=== PATIENT | male | born 1990 | race Caucasian/White ===

== ENCOUNTER 2017-02-03 19:26 | Emergency (ER) | payer OTHER ==
[2017-02-03 20:25] LABS: BASOPHIL 0.4 % (0-2); EOSINOPHIL 4.4 % (0-5); HCT 40.8 % (42.0-52.0); HGB 14.4 g/dl (13.2-18.0); LYMPHOCYTE 36.1 % (15-48); MCH 31.9 pg (25.0-31.0); MCHC 35.3 g/dL (32.0-36.0); MCV 90.5 fL (78.0-100.0); MONOCYTE 9.9 % (0-12); MPV 9.2 fL (6.0-9.5); NEUTROPHIL 49.2 % (41-80); PLT 287 K/uL (150-400); RBC 4.51 M/uL (4.70-6.00); RDW 12.2 % (11.5-14.0); WBC 11.1 K/uL (4.0-10.5)
[2017-02-03 20:39] LABS: ALBUMIN 4.2 g/dL (3.5-5.0); BILIRUBIN - TOTAL 0.3 mg/dL (0.1-1.0); CREATININE 1.1 mg/dL (0.7-1.2); POTASSIUM 3.7 mmol/L (3.5-5.1); TOTAL PROTEIN 7.2 g/dL (6.4-8.3)
[2017-02-03 21:43] LABS: BILIRUBIN NEGATIVE (NEGATIVE); BLOOD NEGATIVE Ery/uL (NEGATIVE); CLARITY CLEAR (CLEAR); COLOR YELLOW (YELLOW); GLUCOSE (U) NORMAL (NORMAL); KETONE (U) NEGATIVE (NEGATIVE); LEUKOCYTES NEGATIVE Leu/uL (NEGATIVE); NITRITE NEGATIVE (NEGATIVE); PROTEIN NEGATIVE (NEGATIVE); UROBILINOGEN 0.2 mg/dL (0.2-1.0); pH 7.5 (5.0-9.0)
== END 2017-02-03 22:24 | disposition home or self-care (01) ==
LOC: FER 19:26
PROVIDERS: Emergency Medicine
DX: R10.31 Right lower quadrant pain (principal); R63.0 Anorexia; Z90.49 Acquired absence of other specified parts of digestive tract
CPT/HCPCS: 36415; 80053; 81003; 85025; J1885; J2270; J2405; Q9967

== ENCOUNTER 2017-02-09 12:07 | Emergency (ER) | payer OTHER ==
[2017-02-09 12:51] LABS: BASOPHIL 0.3 % (0-2); EOSINOPHIL 1.8 % (0-5); HCT 40.4 % (42.0-52.0); HGB 13.9 g/dl (13.2-18.0); LYMPHOCYTE 24.5 % (15-48); MCH 31.2 pg (25.0-31.0); MCHC 34.4 g/dL (32.0-36.0); MCV 90.8 fL (78.0-100.0); MONOCYTE 8.4 % (0-12); MPV 9.2 fL (6.0-9.5); PLT 286 K/uL (150-400); RBC 4.45 M/uL (4.70-6.00); RDW 12.2 % (11.5-14.0); WBC 10.9 K/uL (4.0-10.5)
[2017-02-09 13:25] LABS: ALBUMIN 4.2 g/dL (3.5-5.0); BILIRUBIN - TOTAL 0.7 mg/dL (0.1-1.0); CREATININE 1.2 mg/dL (0.7-1.2); GLOBULIN (CALCULATION) 3.1 g/dL (2.2-4.2); POTASSIUM 3.7 mmol/L (3.5-5.1); TOTAL PROTEIN 7.3 g/dL (6.4-8.3)
== END 2017-02-09 15:37 | disposition home or self-care (01) ==
LOC: FER 12:07
PROVIDERS: Nurse Practitioner
DX: R07.89 Other chest pain (principal); R11.2 Nausea with vomiting, unspecified; R10.817 Generalized abdominal tenderness; G89.29 Other chronic pain
CPT/HCPCS: 36415; 74022; 80053; 83690; 85025; 87339; 93005